=== PATIENT | female | born 1970 | race African-American/Black ===

== ENCOUNTER 2019-05-19 11:24 | Inpatient (IN) | payer OTHER ==
--- NOTE | 2019-05-19 12:11 | HP ---
CIWA Score Nausea/Vomitin-No Nausea/No Vomiting Muscle Tremors: None Anxiety: 5 Agitation: 4-Moderately Restless Paroxysmal Sweats: 4-Forehead w/Sweat Beads Orientation: 0-Oriented Tacttile Disturbances: 0-None Auditory Disturbances: 4-Moderate Hallucination (states "my conscious talking to me") Visual Disturbances: 0-None Headache: 0-None Present CIWA-Ar Total Score: 17 - Admission Criteria OASAS Guidelines: Admission for Medically Managed Detox: Requires at least one of the followin. CIWA greater than 12 2. Seizures within the past 24 hours 3. Delirium tremens within the past 24 hours 4. Hallucinations within the past 24 hours 5. Acute intervention needed for co occurring medical disorder 6. Acute intervention needed for co occurring psychiatric disorder 7. Severe withdrawal that cannot be handled at a lower level of care (continued vomiting, continued diarrhea, abnormal vital signs) requiring intravenous medication and/or fluids 8. Admitting History and Physical - Admission Chief Complaint: Ms. Rosen is a 49 yo woman who presents to [facility] requesting admission "to detox from all the stuff I'm on". She is drinking alcohol andusing cocaine and marijuana. History of Present Illness: Ms. Rosen is a 49 yo woman who presents to [facility] requesting admission "to detox from all the stuff I'm on". She is drinking alcohol andusing cocaine and marijuana. No recent detox. Here at [facility] many years ago. PMH: HTN, GERD, asthma, osteoarthritis PSH: total right knee replacement 2017, Fibroids 2019 Psych: bipolar, anxiety, depression PTSD, taking Seroquel, Atarx, last dose yesterday. Substance use history Alcohol 6 pack of malt liquor/day, last drank this am, first drink age 16 y, had a black out 3 days ago. No seizure history. Longest abstinent: a couple of days. 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 THC: first use at the age of 16 y, lst use one week ago, 1-2 x per week, 2 blunts Cocaine: first use age 21y, last use yesterday, $200 per day Nicotine: 3-4 cigs per day Denies: heroin, methadone, benzos - Past Medical History ...LMP: 01/12/19 - Smoking History Smoking history: Current every day smoker Have you smoked in the past 12 months: Yes Aproximately how many cigarettes per day: 3 - Alcohol/Substance Use Hx Alcohol Use: Yes (occas) Admission ROS S - [facility] Allergies/Adverse Reactions: Allergies Allergy/AdvReac Type Severity Reaction Status Date / Time musa flavor Allergy Severe Swelling Verified 06/23/18 14:10 Sulfa (Sulfonamide Allergy Intermediate Verified 06/23/18 14:10 Antibiotics) [Sulfa(Sulfonamide Antibiotics)] Unclassified Drug Allergy Mild Verified 10/22/17 09:47 cashew nut Allergy "swelling Verified 12/12/18 14:13 of mouth and itching in rectal area" Exam Limitations: No Limitations - Ebola screening Have you traveled outside of the country in the last 21 days: No Have you had contact with anyone from an Ebola affected area: No Have you been sick,other than usual withdrawal symptoms: No Do you have a fever: No - Review of Systems Constitutional: Changes in sleep, Other (on Ozempic for weight loss. max 4 hours sleep per night) EENT: reports: No Symptoms Reported, Blurred Vision Respiratory: reports: No Symptoms reported Cardiac: reports: No Symptoms Reported GI: reports: No Symptoms Reported : reports: Other (hesitency) Musculoskeletal: reports: Back Pain, Joint Pain, Muscle Pain Integumentary: reports: No Symptoms Reported Neuro: reports: No Symptoms reported Endocrine: reports: Other (told she was diabetic in 2008, improved with weight loss) Hematology: reports: No Symptoms Reported Psychiatric: reports: Anxious, Depressed, other (PTSD) Patient History - Patient Medical History Hx Anemia: No Hx Asthma: Yes Hx Chronic Obstructive Pulmonary Disease (COPD): No Hx Cancer: No Hx Cardiac Disorders: No Hx Congestive Heart Failure: No Hx Hypertension: Yes Hx Hypercholesterolemia: No Hx Pacemaker: No HX Cerebrovascular Accident: No Hx Seizures: No Hx Dementia: No Hx Diabetes: Yes (HX NO MEDS PRESENTLY) Hx Gastrointestinal Disorders: Yes (gerd) Hx Liver Disease: No Hx Genitourinary Disorders: No Hx Sexually Transmitted Disorders: No Hx Renal Disease (ESRD): No Hx Thyroid Disease: No Hx Human Immunodeficiency Virus (HIV): No Hx Hepatitis C: No Hx Depression: Yes (getting treatment) Hx Suicide Attempt: Yes (pill overdose in 06/2011) Hx Bipolar Disorder: Yes (no med) Hx Schizophrenia: No - Patient Surgical History Past Surgical History: Yes Hx Neurologic Surgery: No Hx Cataract Extraction: No Hx Cardiac Surgery: No Hx Lung Surgery: No Hx Breast Surgery: No Hx Breast Biopsy: No Hx Abdominal Surgery: No Hx Appendectomy: No Hx Cholecystectomy: No Hx Genitourinary Surgery: No Hx Section: Yes Hx Orthopedic Surgery: Yes Anesthesia Reaction: No - PPD History Date: 07/18/12 - Reproductive History Last Menstrual Period: 01/12/19 - Smoking Cessation Smoking history: Current every day smoker Have you smoked in the past 12 months: Yes Aproximately how many cigarettes per day: 3 Hx Chewing Tobacco Use: No Initiated information on smoking cessation: Yes 'Breaking Loose' booklet given: 05/19/19 - Substances abused Alcohol Frequency: Daily Amount used: 6 pack of malt liquor Age of first use: 16 Date of last use: 05/19/19 Marijuana/Hashish Frequency: 1-2 times per week Amount used: 2 blunts Age of first use: 16 Date of last use: 05/12/19 Cocaine Substance route: Smoking Frequency: 1-2 times per week Amount used: $200/day Age of first use: 21 Date of last use: 05/18/19 Admission Physical Exam [facility] - Physical General Appearance: Yes: No Apparent Distress, Obese HEENTM: Yes: Hearing grossly Normal, Normocephalic, Normal Voice Respiratory: Yes: Lungs Clear, Normal Breath Sounds Neck: Yes: No masses,lesions,Nodules Breast: Yes: Breast Exam Deferred Cardiology: Yes: Regular Rate, S1, S2 Abdominal: Yes: Normal Bowel Sounds, Non Tender, Soft Genitourinary: Yes: Other (deferred) Back: Yes: Normal Inspection Musculoskeletal: Yes: Within Normal Limits Extremities: Yes: Within Normal Limits Neurological: Yes: bread wrapper II-XII NML intact, Alert, Normal Mood/Affect Integumentary: Yes: Within Normal Limits Cleared for Admission S - Detox or Rehab [facility] Level of Care: Medically Managed Breathalyzer - Breathalyzer Breathalyzer: 0.067 Urine Drug Screen - Test Device Lot number: [id number] Expiration date: 03/07/21 - Control Is test valid?: Yes - Results Drug screen NEGATIVE: No Urine drug screen results: MATTHEW-Cocaine Inpatient Rehab Admission - Rehab Decision to Admit Inpatient rehab admission?: No
[2019-05-19] MEDS ORDERED: MENTHOL/PHENOL 1 EACH UD MM PRN (12:19)
[2019-05-19] MEDS ORDERED: ACETAMINOPHEN 325 MG TABLET (FP) PO PRN ×2 (12:19)
[2019-05-19] MEDS ORDERED: NICOTINE POLACRILEX 2 MG GUM BUC PRN (12:19)
[2019-05-19] MEDS ORDERED: MAGNESIUM HYDROX 2400MG/30ML ORAL SUSPENSION 30 ML CUP PO PRN (12:19)
[2019-05-19] MEDS ORDERED: IBUPROFEN 400 MG TABLET (FP) PO PRN (12:19)
[2019-05-19] MEDS ORDERED: MAGNESIUM CITRATE 300 ML BOTTLE PO PRN (12:19)
[2019-05-19] MEDS ORDERED: chlordiazePOXIDE HCL 25 MG CAPSULE PO PRN (12:19)
[2019-05-19] MEDS ORDERED: BISMUTH SUBSALICYLATE 524 MG/30 ML UD PO PRN (12:19)
[2019-05-19] MEDS ORDERED: PATIENT'S OWN MEDICATION (NON-FORMULARY) (Omeprazole [Omeprazole] 40 MG) PO SCH (12:30)
[2019-05-19 13:02] VITALS: BMI 35.5
[2019-05-19] MEDS ORDERED: PATIENT'S OWN MEDICATION (NON-FORMULARY) (Lisinopril [Prinivil -] 40 MG) PO SCH (13:15)
[2019-05-19] MEDS ORDERED: ALBUTEROL SO4 HFA INHALER IH PRN ×2 (14:00→16:29)
[2019-05-19] MEDS ORDERED: LISINOPRIL 20 MG TABLET (FP) PO SCH (15:00)
[2019-05-19] MEDS: BUDESONIDE/FORMETEROL FUMARATE 160/4.5 mcg INHALER IH SCH ×2 (15:14→22:07)
[2019-05-19] MEDS: amLODIPine BESYLATE 10 MG TABLET (FP) PO SCH (15:15)
[2019-05-19] MEDS: GABAPENTIN 300 MG CAPSULE PO SCH ×2 (15:15→22:06)
[2019-05-19] MEDS: chlordiazePOXIDE HCL 25 MG CAPSULE PO SCH ×2 (17:16→22:07)
[2019-05-19] MEDS ORDERED: LIPASE/PROTEASE/AMYLASE 36,000 UNIT CAPSULE PO SCH (17:30)
[2019-05-19] MEDS: LIPASE/PROTEASE/AMYLASE 36,000 UNIT CAPSULE PO SCH ×2 (17:30→22:09)
[2019-05-19] MEDS: LISINOPRIL 20 MG TABLET (FP) PO SCH (19:26)
[2019-05-19] MEDS: NEBIVOLOL 10 MG TABLET (FP) PO SCH (19:40)
[2019-05-19 20:33] LABS: HEMATOCRIT 35.8 % (32.4-45.2); HEMOGLOBIN 12.2 GM/dL (10.7-15.3); MCH 31.1 pg (25.7-33.7); MCHC 34.2 g/dl (32.0-36.0); MEAN PLT VOLUME 7.9 fl (7.5-11.1); PLATELET COUNT 238 K/MM3 (134-434); RBC 3.93 M/mm3 (3.60-5.2); RDW 14.3 % (11.6-15.6); WHITE BLOOD COUNT 6.9 K/mm3 (4.0-10.0)
[2019-05-19 20:55] LABS: ALBUMIN 3.8 g/dl (3.4-5.0); BILIRUBIN,TOTAL 0.6 mg/dL (0.2-1); BLOOD UREA NITROGEN 12.6 mg/dL (7-18); CALCIUM 9.5 mg/dL (8.5-10.1); CREATININE 0.9 mg/dL (0.55-1.3)
[2019-05-19] MEDS: METHOCARBAMOL 500 MG TABLET PO PRN (22:05)
[2019-05-19] MEDS: THIAMINE HCL 100 MG TABLET (FP) PO SCH (22:06)
[2019-05-19] MEDS: MELATONIN 5 MG TABLETS PO PRN (22:08)
[2019-05-20] MEDS: chlordiazePOXIDE HCL 25 MG CAPSULE PO SCH ×4 (05:44→22:11)
[2019-05-20] MEDS: GABAPENTIN 300 MG CAPSULE PO SCH ×3 (05:45→22:11)
[2019-05-20] MEDS: LIPASE/PROTEASE/AMYLASE 36,000 UNIT CAPSULE PO SCH ×5 (07:56→22:11)
[2019-05-20] MEDS ORDERED: LISINOPRIL 10 MG TABLET (FP) PO SCH (10:00)
[2019-05-20] MEDS: LISINOPRIL 20 MG TABLET (FP) PO SCH (10:13)
[2019-05-20] MEDS: PRENATAL VITAMINS W/ FOLIC ACID TABLET (FP) PO SCH (10:13)
[2019-05-20] MEDS: BUDESONIDE/FORMETEROL FUMARATE 160/4.5 mcg INHALER IH SCH ×2 (10:13→22:10)
[2019-05-20] MEDS: PANTOPRAZOLE 40 MG TABLET PO SCH (10:13)
[2019-05-20] MEDS: amLODIPine BESYLATE 10 MG TABLET (FP) PO SCH (10:14)
--- NOTE | 2019-05-20 13:19 | PN ---
S CIWA - CIWA Score Nausea/Vomitin-Mild Nausea/No Vomiting Muscle Tremors: 4-Moderate,w/Arms Extend Anxiety: 1-Mildly Anxious Agitation: 1-Slight > Activity Paroxysmal Sweats: 2 Orientation: 0-Oriented Tacttile Disturbances: 0-None Auditory Disturbances: 1-Very Mild Visual Disturbances: 1-Very Mild Sensitivity Headache: 1-Very Mild CIWA-Ar Total Score: 12 BHS Progress Note (SOAP) Subjective: 49 years old female admitted on 05/19/19 for alcohol withdrawal sx management treating with librum detox regiment long history of hypertension due to low bp set minimum parameter for antihypertensive medication administration Objective: 05/20/19 13:19 Vital Signs Temperature 97.9 F 05/20/19 08:52 Pulse Rate 73 05/20/19 08:52 Respiratory Rate 18 05/20/19 08:52 Blood Pressure 98/69 05/20/19 08:52 O2 Sat by Pulse Oximetry (%) Laboratory Last Values WBC 6.9 K/mm3 (4.0-10.0) 05/19/19 12:35 RBC 3.93 M/mm3 (3.60-5.2) 05/19/19 12:35 Hgb 12.2 GM/dL (10.7-15.3) 05/19/19 12:35 Hct 35.8 % (32.4-45.2) D 05/19/19 12:35 MCV 91.0 fl (80-96) 05/19/19 12:35 MCH 31.1 pg (25.7-33.7) D 05/19/19 12:35 MCHC 34.2 g/dl (32.0-36.0) 05/19/19 12:35 RDW 14.3 % (11.6-15.6) D 05/19/19 12:35 Plt Count 238 K/MM3 (134-434) 05/19/19 12:35 MPV 7.9 fl (7.5-11.1) D 05/19/19 12:35 Sodium 141 mmol/L (136-145) 05/19/19 12:35 Potassium 4.0 mmol/L (3.5-5.1) 05/19/19 12:35 Chloride 110 mmol/L (98-107) H 05/19/19 12:35 Carbon Dioxide 22 mmol/L (21-32) 05/19/19 12:35 Anion Gap 9 MMOL/L (8-16) 05/19/19 12:35 BUN 12.6 mg/dL (7-18) 05/19/19 12:35 Creatinine 0.9 mg/dL (0.55-1.3) 05/19/19 12:35 Est GFR (CKD-EPI)AfAm 87.02 05/19/19 12:35 Est GFR (CKD-EPI)NonAf 75.08 05/19/19 12:35 Random Glucose 60 mg/dL (74-106) L 05/19/19 12:35 Calcium 9.5 mg/dL (8.5-10.1) 05/19/19 12:35 Total Bilirubin 0.6 mg/dL (0.2-1) 05/19/19 12:35 AST 13 U/L (15-37) L 05/19/19 12:35 ALT 15 U/L (13-61) 05/19/19 12:35 Alkaline Phosphatase 62 U/L (45-117) 05/19/19 12:35 Total Protein 7.0 g/dl (6.4-8.2) 05/19/19 12:35 Albumin 3.8 g/dl (3.4-5.0) 05/19/19 12:35 POC Urine HCG, Qual Negative 05/19/19 11:42 RPR Titer Nonreactive (NONREACTIVE) 05/19/19 12:35 lab noted Assessment: 05/20/19 13:19 alcohol withdrawal Plan: librium regiment
[2019-05-20] MEDS: METHOCARBAMOL 500 MG TABLET PO PRN (13:21)
[2019-05-20] MEDS: NEBIVOLOL 10 MG TABLET (FP) PO SCH ×2 (13:46→14:54)
[2019-05-20] MEDS: hydrOXYzine PAMOATE 25 MG CAPSULE (FP) PO PRN ×2 (14:34→22:13)
[2019-05-20] MEDS ORDERED: LISINOPRIL 20 MG TABLET (FP) PO SCH (16:00)
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
[2019-05-20] MEDS: MAG HYDROX/AL HYDROX/SIMETH 30 ML UNIT-DOSE CUP PO PRN ×2 (16:39→22:43)
[2019-05-20] MEDS ORDERED: amLODIPine BESYLATE 10 MG TABLET (FP) PO SCH (17:00)
[2019-05-20] MEDS: THIAMINE HCL 100 MG TABLET (FP) PO SCH (22:11)
[2019-05-20] MEDS: QUEtiapine FUMARATE 200 MG TABLET PO SCH (22:11)
[2019-05-21] MEDS: GABAPENTIN 300 MG CAPSULE PO SCH ×3 (05:56→22:05)
[2019-05-21] MEDS: chlordiazePOXIDE HCL 25 MG CAPSULE PO SCH ×4 (05:56→22:04)
[2019-05-21] MEDS: LIPASE/PROTEASE/AMYLASE 36,000 UNIT CAPSULE PO SCH ×4 (08:16→22:04)
[2019-05-21] MEDS: LISINOPRIL 20 MG TABLET (FP) PO SCH (10:24)
[2019-05-21] MEDS: QUEtiapine FUMARATE 200 MG TABLET PO SCH ×2 (10:24→22:05)
[2019-05-21] MEDS: PANTOPRAZOLE 40 MG TABLET PO SCH (10:24)
[2019-05-21] MEDS: PRENATAL VITAMINS W/ FOLIC ACID TABLET (FP) PO SCH (10:24)
[2019-05-21] MEDS: amLODIPine BESYLATE 10 MG TABLET (FP) PO SCH (10:25)
[2019-05-21] MEDS: BUDESONIDE/FORMETEROL FUMARATE 160/4.5 mcg INHALER IH SCH ×2 (10:25→22:03)
[2019-05-21] MEDS: NEBIVOLOL 10 MG TABLET (FP) PO SCH (10:25)
--- NOTE | 2019-05-21 12:39 | PN ---
[facility] CIWA - CIWA Score Nausea/Vomitin-No Nausea/No Vomiting Muscle Tremors: 3 Anxiety: 2 Agitation: 1-Slight > Activity Paroxysmal Sweats: 2 Orientation: 0-Oriented Tacttile Disturbances: 0-None Auditory Disturbances: 0-None Visual Disturbances: 1-Very Mild Sensitivity Headache: 0-None Present CIWA-Ar Total Score: 9 S Progress Note (SOAP) Subjective: 49 years old female admitted on 05/19/19 for alcohol withdrawal sx management treating with librium detox regiment feeling ok today ate breakfast and lunch in day room social with peers attending behavior and psychosocial therapies groups and meetings discuss aftercare with staff Objective: 05/21/19 12:40 Vital Signs Temperature 98.1 F 05/21/19 08:35 Pulse Rate 73 05/21/19 08:35 Respiratory Rate 18 05/21/19 08:35 Blood Pressure 98/75 05/21/19 08:35 O2 Sat by Pulse Oximetry (%) Laboratory Last Values WBC 6.9 K/mm3 (4.0-10.0) 05/19/19 12:35 RBC 3.93 M/mm3 (3.60-5.2) 05/19/19 12:35 Hgb 12.2 GM/dL (10.7-15.3) 05/19/19 12:35 Hct 35.8 % (32.4-45.2) D 05/19/19 12:35 MCV 91.0 fl (80-96) 05/19/19 12:35 MCH 31.1 pg (25.7-33.7) D 05/19/19 12:35 MCHC 34.2 g/dl (32.0-36.0) 05/19/19 12:35 RDW 14.3 % (11.6-15.6) D 05/19/19 12:35 Plt Count 238 K/MM3 (134-434) 05/19/19 12:35 MPV 7.9 fl (7.5-11.1) D 05/19/19 12:35 Sodium 141 mmol/L (136-145) 05/19/19 12:35 Potassium 4.0 mmol/L (3.5-5.1) 05/19/19 12:35 Chloride 110 mmol/L (98-107) H 05/19/19 12:35 Carbon Dioxide 22 mmol/L (21-32) 05/19/19 12:35 Anion Gap 9 MMOL/L (8-16) 05/19/19 12:35 BUN 12.6 mg/dL (7-18) 05/19/19 12:35 Creatinine 0.9 mg/dL (0.55-1.3) 05/19/19 12:35 Est GFR (CKD-EPI)AfAm 87.02 05/19/19 12:35 Est GFR (CKD-EPI)NonAf 75.08 05/19/19 12:35 Random Glucose 60 mg/dL (74-106) L 05/19/19 12:35 Calcium 9.5 mg/dL (8.5-10.1) 05/19/19 12:35 Total Bilirubin 0.6 mg/dL (0.2-1) 05/19/19 12:35 AST 13 U/L (15-37) L 05/19/19 12:35 ALT 15 U/L (13-61) 05/19/19 12:35 Alkaline Phosphatase 62 U/L (45-117) 05/19/19 12:35 Total Protein 7.0 g/dl (6.4-8.2) 05/19/19 12:35 Albumin 3.8 g/dl (3.4-5.0) 05/19/19 12:35 POC Urine HCG, Qual Negative 05/19/19 11:42 RPR Titer Nonreactive (NONREACTIVE) 05/19/19 12:35 lab noted Assessment: 05/21/19 12:41 alcohol withdrawal Plan: librium regiment
[2019-05-21] MEDS: MAG HYDROX/AL HYDROX/SIMETH 30 ML UNIT-DOSE CUP PO PRN (21:20)
[2019-05-21] MEDS: THIAMINE HCL 100 MG TABLET (FP) PO SCH (22:03)
[2019-05-21] MEDS: hydrOXYzine PAMOATE 25 MG CAPSULE (FP) PO PRN (22:08)
[2019-05-22] MEDS ORDERED: chlordiazePOXIDE HCL 10 MG CAPSULE PO PRN
[2019-05-22] MEDS: GABAPENTIN 300 MG CAPSULE PO SCH ×3 (05:23→22:04)
[2019-05-22] MEDS: chlordiazePOXIDE HCL 10 MG CAPSULE PO SCH ×4 (05:23→22:04)
[2019-05-22] MEDS: METHOCARBAMOL 500 MG TABLET PO PRN ×2 (05:24→11:51)
[2019-05-22] MEDS: LIPASE/PROTEASE/AMYLASE 36,000 UNIT CAPSULE PO SCH ×4 (07:23→22:04)
[2019-05-22] MEDS: QUEtiapine FUMARATE 200 MG TABLET PO SCH ×2 (10:12→22:04)
[2019-05-22] MEDS: PANTOPRAZOLE 40 MG TABLET PO SCH (10:12)
[2019-05-22] MEDS: PRENATAL VITAMINS W/ FOLIC ACID TABLET (FP) PO SCH (10:13)
[2019-05-22] MEDS: BUDESONIDE/FORMETEROL FUMARATE 160/4.5 mcg INHALER IH SCH ×2 (10:14→22:03)
[2019-05-22] MEDS: hydrOXYzine PAMOATE 25 MG CAPSULE (FP) PO PRN ×2 (10:27→17:31)
[2019-05-22] MEDS: NEBIVOLOL 10 MG TABLET (FP) PO SCH (11:30)
[2019-05-22] MEDS: LISINOPRIL 20 MG TABLET (FP) PO SCH (11:30)
[2019-05-22] MEDS: amLODIPine BESYLATE 10 MG TABLET (FP) PO SCH (11:30)
[2019-05-22] MEDS: MAG HYDROX/AL HYDROX/SIMETH 30 ML UNIT-DOSE CUP PO PRN ×2 (11:32→22:30)
--- NOTE | 2019-05-22 14:53 | PN ---
S CIWA - CIWA Score Nausea/Vomitin-Mild Nausea/No Vomiting Muscle Tremors: 1-None Visible, but Donna Anxiety: 1-Mildly Anxious Agitation: 1-Slight > Activity Paroxysmal Sweats: No Perspiration Orientation: 0-Oriented Tacttile Disturbances: 0-None Auditory Disturbances: 0-None Visual Disturbances: 0-None Headache: 2-Mild CIWA-Ar Total Score: 6 BHS Progress Note (SOAP) Subjective: alert,irritable,anxious,interrupted sleep,pain in the body Objective: 05/22/19 14:52 Vital Signs Temperature 97.3 F L 05/22/19 12:33 Pulse Rate 90 05/22/19 12:33 Respiratory Rate 20 05/22/19 12:33 Blood Pressure 101/65 05/22/19 12:33 O2 Sat by Pulse Oximetry (%) Assessment: 05/22/19 14:53 withdrawal symptom Plan: continue detox librium regimen
[2019-05-22] MEDS: PATIENT'S OWN MEDICATION (NON-FORMULARY) (Linaclotide [Linzess] 145 MCG) PO SCH (21:12)
[2019-05-22] MEDS: THIAMINE HCL 100 MG TABLET (FP) PO SCH (22:04)
[2019-05-22] MEDS: MELATONIN 5 MG TABLETS PO PRN (22:29)
[2019-05-23] MEDS: GABAPENTIN 300 MG CAPSULE PO SCH ×3 (05:46→22:05)
[2019-05-23] MEDS: chlordiazePOXIDE HCL 10 MG CAPSULE PO SCH ×2 (05:46→17:48)
[2019-05-23] MEDS: hydrOXYzine PAMOATE 25 MG CAPSULE (FP) PO PRN ×3 (05:47→22:37)
[2019-05-23] MEDS: amLODIPine BESYLATE 10 MG TABLET (FP) PO SCH (10:09)
[2019-05-23] MEDS: PANTOPRAZOLE 40 MG TABLET PO SCH (10:09)
[2019-05-23] MEDS: QUEtiapine FUMARATE 200 MG TABLET PO SCH ×2 (10:09→22:06)
[2019-05-23] MEDS: PRENATAL VITAMINS W/ FOLIC ACID TABLET (FP) PO SCH (10:09)
[2019-05-23] MEDS: LISINOPRIL 20 MG TABLET (FP) PO SCH (10:10)
[2019-05-23] MEDS: LIPASE/PROTEASE/AMYLASE 36,000 UNIT CAPSULE PO SCH ×4 (10:10→22:06)
[2019-05-23] MEDS: NEBIVOLOL 10 MG TABLET (FP) PO SCH (10:10)
[2019-05-23] MEDS: BUDESONIDE/FORMETEROL FUMARATE 160/4.5 mcg INHALER IH SCH ×2 (10:10→22:06)
[2019-05-23] MEDS: PATIENT'S OWN MEDICATION (NON-FORMULARY) (Linaclotide [Linzess] 145 MCG) PO SCH (11:17)
--- NOTE | 2019-05-23 12:01 | PN ---
[facility] CIWA - CIWA Score Nausea/Vomitin-No Nausea/No Vomiting Muscle Tremors: None Anxiety: 2 Agitation: 0-Normal Activity Paroxysmal Sweats: 2 Orientation: 0-Oriented Tacttile Disturbances: 0-None Auditory Disturbances: 0-None Visual Disturbances: 0-None Headache: 0-None Present CIWA-Ar Total Score: 4 BHS Progress Note (SOAP) Subjective: c/o mild withdrawal symptoms. Objective: 05/23/19 11:59 Vital Signs 05/23/19 05/23/19 05/23/19 05:40 06:30 08:45 Temperature 97.1 F L 96.0 F L Pulse Rate 80 80 Respiratory 18 18 18 Rate Blood Pressure 95/64 110/76 Laboratory Last Values WBC 6.9 K/mm3 (4.0-10.0) 05/19/19 12:35 RBC 3.93 M/mm3 (3.60-5.2) 05/19/19 12:35 Hgb 12.2 GM/dL (10.7-15.3) 05/19/19 12:35 Hct 35.8 % (32.4-45.2) D 05/19/19 12:35 MCV 91.0 fl (80-96) 05/19/19 12:35 MCH 31.1 pg (25.7-33.7) D 05/19/19 12:35 MCHC 34.2 g/dl (32.0-36.0) 05/19/19 12:35 RDW 14.3 % (11.6-15.6) D 05/19/19 12:35 Plt Count 238 K/MM3 (134-434) 05/19/19 12:35 MPV 7.9 fl (7.5-11.1) D 05/19/19 12:35 Sodium 141 mmol/L (136-145) 05/19/19 12:35 Potassium 4.0 mmol/L (3.5-5.1) 05/19/19 12:35 Chloride 110 mmol/L (98-107) H 05/19/19 12:35 Carbon Dioxide 22 mmol/L (21-32) 05/19/19 12:35 Anion Gap 9 MMOL/L (8-16) 05/19/19 12:35 BUN 12.6 mg/dL (7-18) 05/19/19 12:35 Creatinine 0.9 mg/dL (0.55-1.3) 05/19/19 12:35 Est GFR (CKD-EPI)AfAm 87.02 05/19/19 12:35 Est GFR (CKD-EPI)NonAf 75.08 05/19/19 12:35 Random Glucose 60 mg/dL (74-106) L 05/19/19 12:35 Calcium 9.5 mg/dL (8.5-10.1) 05/19/19 12:35 Total Bilirubin 0.6 mg/dL (0.2-1) 05/19/19 12:35 AST 13 U/L (15-37) L 05/19/19 12:35 ALT 15 U/L (13-61) 05/19/19 12:35 Alkaline Phosphatase 62 U/L (45-117) 05/19/19 12:35 Total Protein 7.0 g/dl (6.4-8.2) 05/19/19 12:35 Albumin 3.8 g/dl (3.4-5.0) 05/19/19 12:35 POC Urine HCG, Qual Negative 05/19/19 11:42 RPR Titer Nonreactive (NONREACTIVE) 05/19/19 12:35 Labs noted. Assessment: 05/23/19 11:59 AOX3, in no acute respiratory distress. Full ROM, ambulating in the unit. Mild Withdrawal symptoms. For d/c tomorrow. Plan: continue detox. D/C in AM.
[2019-05-23] MEDS: METHOCARBAMOL 500 MG TABLET PO PRN ×2 (15:57→22:39)
[2019-05-23] MEDS: MAG HYDROX/AL HYDROX/SIMETH 30 ML UNIT-DOSE CUP PO PRN (16:55)
[2019-05-23] MEDS: THIAMINE HCL 100 MG TABLET (FP) PO SCH (22:06)
[2019-05-24] MEDS ORDERED: chlordiazePOXIDE HCL 10 MG CAPSULE PO ONE (05:00)
[2019-05-24] MEDS: GABAPENTIN 300 MG CAPSULE PO SCH (05:43)
[2019-05-24 07:31] VITALS: BP 99/63; PULSE 76; TEMP 97.1
--- NOTE | 2019-05-24 10:49 | DS ---
[facility] Detox Discharge Summary Admission Date: 05/19/19 Discharge Date: 05/24/19 - History Present History: Alcohol Dependence Additional Comments: 49 years old female admitted on 05/19/19 for alcohol withdrawal sx mangement treated with librium detox regiment seen by psychiatrist lisa olivas and enrrique Ms Rosen has completed the librium regiment and tolerated well alert oriented x 3 respiratory clear lungs bilaterally on auscultation abdomen soft round obese no rebound tenderness skin warm and dry Pertinent Past History: time for discharge: 27 minutes patient was in positive direction out patient program prefers returning to the program continue recovery - Physical Exam Results Vital Signs: Vital Signs Temperature 97.1 F L 05/24/19 07:30 Pulse Rate 76 05/24/19 07:30 Respiratory Rate 18 05/24/19 07:30 Blood Pressure 99/63 05/24/19 07:30 O2 Sat by Pulse Oximetry (%) Pertinent Admission Physical Exam Findings: alcohol withdrawal Vital Signs Temperature 97.1 F L 05/24/19 07:30 Pulse Rate 76 05/24/19 07:30 Respiratory Rate 18 05/24/19 07:30 Blood Pressure 99/63 05/24/19 07:30 O2 Sat by Pulse Oximetry (%) Laboratory Last Values WBC 6.9 K/mm3 (4.0-10.0) 05/19/19 12:35 RBC 3.93 M/mm3 (3.60-5.2) 05/19/19 12:35 Hgb 12.2 GM/dL (10.7-15.3) 05/19/19 12:35 Hct 35.8 % (32.4-45.2) D 05/19/19 12:35 MCV 91.0 fl (80-96) 05/19/19 12:35 MCH 31.1 pg (25.7-33.7) D 05/19/19 12:35 MCHC 34.2 g/dl (32.0-36.0) 05/19/19 12:35 RDW 14.3 % (11.6-15.6) D 05/19/19 12:35 Plt Count 238 K/MM3 (134-434) 05/19/19 12:35 MPV 7.9 fl (7.5-11.1) D 05/19/19 12:35 Sodium 141 mmol/L (136-145) 05/19/19 12:35 Potassium 4.0 mmol/L (3.5-5.1) 05/19/19 12:35 Chloride 110 mmol/L (98-107) H 05/19/19 12:35 Carbon Dioxide 22 mmol/L (21-32) 05/19/19 12:35 Anion Gap 9 MMOL/L (8-16) 05/19/19 12:35 BUN 12.6 mg/dL (7-18) 05/19/19 12:35 Creatinine 0.9 mg/dL (0.55-1.3) 05/19/19 12:35 Est GFR (CKD-EPI)AfAm 87.02 05/19/19 12:35 Est GFR (CKD-EPI)NonAf 75.08 05/19/19 12:35 Random Glucose 60 mg/dL (74-106) L 05/19/19 12:35 Calcium 9.5 mg/dL (8.5-10.1) 05/19/19 12:35 Total Bilirubin 0.6 mg/dL (0.2-1) 05/19/19 12:35 AST 13 U/L (15-37) L 05/19/19 12:35 ALT 15 U/L (13-61) 05/19/19 12:35 Alkaline Phosphatase 62 U/L (45-117) 05/19/19 12:35 Total Protein 7.0 g/dl (6.4-8.2) 05/19/19 12:35 Albumin 3.8 g/dl (3.4-5.0) 05/19/19 12:35 POC Urine HCG, Qual Negative 05/19/19 11:42 RPR Titer Nonreactive (NONREACTIVE) 05/19/19 12:35 lab noted - Treatment Hospital Course: Detox Protocol Followed, Detoxed Safely, Responded well, Discharged Condition Good, Rehab Referral Accepted Patient has Accepted a Rehab Referral to: positive direction - Medication Discharge Medications: Ambulatory Orders Amlodipine Besylate 10 mg PO DAILY 10/21/17 Gabapentin [Neurontin] 300 mg PO TID 10/21/17 Meloxicam 15 mg PO PRN 10/21/17 Omeprazole 40 mg PO DAILY 10/21/17 Cyclobenzaprine HCl [Flexeril 10 mg] 10 mg PO BID 12/12/18 hydrOXYzine HCL [Atarax -] 50 mg PO BID 12/12/18 Budesonide/Formeterol Fumarate [SYMBICORT 160/4.5mcg -] 1 inh PO BID 03/04/19 Albuterol Sulfate Inhaler - [Ventolin Hfa Inhaler -] 2 inh PO Q4H 05/19/19 Linaclotide [Linzess] 145 mcg PO DAILY 05/19/19 Lipase/Protease/Amylase [Adrienne Gibbons 36,000 Units Capsule] 1 each PO HS 05/19/19 Lipase/Protease/Amylase [Adrienne Gibbons 36,000 Units Capsule] 1 each PO TIDCM Lisinopril [Prinivil -] 40 mg PO DAILY 05/19/19 Nebivolol [Bystolic -] 10 mg PO DAILY 05/19/19 Quetiapine Fumarate [Seroquel -] 200 mg PO BID 05/19/19 - Diagnosis (1) Alcohol dependence Current Visit: Yes Status: Acute (2) Nicotine dependence Current Visit: Yes Status: Acute (3) Asthma Current Visit: Yes Status: Chronic (4) DM Diabetes mellitus type 2 Current Visit: Yes Status: Chronic (5) Essential hypertension Current Visit: Yes Status: Chronic (6) Gastroesophageal reflux disease Current Visit: Yes Status: Chronic - AMA Did Patient Leave Against Medical Advice: No CIWA Score - CIWA Score Nausea/Vomitin-No Nausea/No Vomiting Muscle Tremors: None Anxiety: 1-Mildly Anxious Agitation: 0-Normal Activity Paroxysmal Sweats: 1-Minimal Palms Moist Orientation: 0-Oriented Tacttile Disturbances: 0-None Auditory Disturbances: 0-None Visual Disturbances: 0-None Headache: 0-None Present CIWA-Ar Total Score: 2
== END 2019-05-24 09:50 | disposition home or self-care (01) | DRG 774 ==
LOC: YASAS 11:24 → Y3N 12:56
PROVIDERS: ADMIT Allergy & Immunology; ATTEND Allergy & Immunology
PROC: HZ2ZZZZ Detoxification Services for Substance Abuse Treatment (ICD-10-PCS; principal; 2019-05-19)
DX: F10.230 Alcohol dependence with withdrawal, uncomplicated (principal); F14.20 Cocaine dependence, uncomplicated; F12.20 Cannabis dependence, uncomplicated; F17.210 Nicotine dependence, cigarettes, uncomplicated; F31.9 Bipolar disorder, unspecified; F43.10 Post-traumatic stress disorder, unspecified; I10 Essential (primary) hypertension; J45.909 Unspecified asthma, uncomplicated; K21.9 Gastro-esophageal reflux disease without esophagitis; E11.9 Type 2 diabetes mellitus without complications; G47.00 Insomnia, unspecified; M19.90 Unspecified osteoarthritis, unspecified site; Z86.2 Personal history of diseases of the blood and blood-forming organs and certain disorders involving the immune mechanism; Z96.651 Presence of right artificial knee joint; Z88.2 Allergy status to sulfonamides; Z91.013 Allergy to seafood; Z91.5 Personal history of self-harm
CPT/HCPCS: 36415; 80053; 81025; 85027; 86593

== ENCOUNTER 2021-11-30 04:12 | Day surgery (SDC) | payer OTHER ==
[2021-11-29 07:46] VITALS: BMI 34.9
[2021-11-30] MEDS ORDERED: LIDOCAINE VISCOUS 2% ORAL/TOP 15 ML UNIT-DOSE CUP ONE (08:30)
[2021-11-30 10:19] VITALS: TEMP 98
[2021-11-30 10:20] VITALS: BP 101/68
[2021-11-30 10:38] VITALS: PULSE 76; RESP 18
== END 2021-11-30 10:00 | disposition home or self-care (01) ==
LOC: JASU-ENDO 04:12
PROVIDERS: ATTEND Internal Medicine Gastroenterology
PROC: 0DB78ZX Excision of Stomach, Pylorus, Via Natural or Artificial Opening Endoscopic, Diagnostic (ICD-10-PCS; principal; 2021-11-30 09:45)
DX: K29.50 Unspecified chronic gastritis without bleeding (principal)
CPT/HCPCS: 81025; 82962; 88305-TC; 88342-TC